=== PATIENT | female | born 1970 ===

== ENCOUNTER 2018-07-14 15:39 | Emergency (ER) | payer BC ==
[~2018-07-14] VITALS: Ht 157.5 cm; Wt 96.2 kg
== END 2018-07-14 19:55 | disposition home or self-care (01) ==
LOC: ER 15:39
DX: B34.9 Viral infection, unspecified (principal); R50.9 Fever, unspecified

== ENCOUNTER 2018-09-22 15:49 | Emergency (ER) | payer BC ==
[~2018-09-22] VITALS: Ht 157.5 cm; Wt 97.1 kg
[2018-09-22] MEDS ORDERED: ADDERALL 20 MG20 MG (16:07)
== END 2018-09-22 17:37 | disposition home or self-care (01) ==
LOC: ER 15:49
DX: J02.8 Acute pharyngitis due to other specified organisms (principal)

== ENCOUNTER 2018-11-16 04:09 | Emergency (ER) | payer BC ==
[~2018-11-16] VITALS: Ht 157.5 cm; Wt 95.3 kg
[~2018-11-16 04:09] MED LIST: ADDERALL 20 MG20 MG
== END 2018-11-16 05:53 | disposition home or self-care (01) ==
LOC: ER 04:09
DX: J02.8 Acute pharyngitis due to other specified organisms (principal)